=== PATIENT | male | born 1990 | race Caucasian/White ===

== ENCOUNTER → 2020-05-15 | Day surgery (SDC) | payer OTHER ==
[~2020-05-15] MED LIST: ACETAMINOPHEN500 M1 PO; COLACE100 MG PO; HYOSCYAMINE PO; LEVOCETIRIZINE PO; MOTRIN600 MG PO; OXY-IR 5MG5 MG PO; PRILOSEC20 MG PO
== END | disposition home or self-care (01) ==
LOC: FAS 09:45
DX: L05.91 Pilonidal cyst without abscess (principal); D17.22 Benign lipomatous neoplasm of skin and subcutaneous tissue of left arm; K21.9 Gastro-esophageal reflux disease without esophagitis; K58.9 Irritable bowel syndrome, unspecified; E78.1 Pure hyperglyceridemia; R22.32 Localized swelling, mass and lump, left upper limb; Z86.59 Personal history of other mental and behavioral disorders; Z20.822 Contact with and (suspected) exposure to COVID-19
CPT/HCPCS: J0690; J1100; J1170; J1644; J1885; J2250; J2405; J2704; J2710; J3010; J7120